=== PATIENT | female | born 1945 | race Caucasian/White ===

== ENCOUNTER 2018-02-09 16:46 | Inpatient (IN) | payer MEDICARE, BC ==
[2018-02-09] MEDS ORDERED: LORAZEPAM 1 MG TAB PO (18:30)
[2018-02-09] MEDS: DEXTROSE 5%-0.9% NACL 1,000 ML IV (20:00)
[2018-02-09] MEDS ORDERED: VANCOMYCIN IV PER PHARMACY XX (20:00)
[2018-02-09] MEDS: clonAZEPAM 0.5 MG TAB NGT (21:00)
[2018-02-09] MEDS ORDERED: LEVALBUTEROL (NEB) 0.63 MG/3 ML AMP HHN (21:00)
[2018-02-09] MEDS ORDERED: IPRATROPIUM (NEB) 0.5 MG/2.5 ML AMP HHN (21:00)
[2018-02-09] MEDS: QUETIAPINE 100 MG TAB NGT (21:00)
[2018-02-09] MEDS: MUPIROCIN 2% 15 GM CR TOP (21:33)
[2018-02-09] MEDS: MEROPENEM 500MG/50 ML (PMX) 50 ML IVPB (21:38)
[2018-02-09] MEDS: VANCOMYCIN 500MG/NS (PMX) 100 ML IVPB (22:26)
[2018-02-09] MEDS: GENTAMICIN 280 MG in SOD CHLORIDE 0.9% 100 ML IVPB (22:27)
[2018-02-10] MEDS: ERYTHROMYCIN ETHYL SUCC (80 MG/ML PO SYG) NGT ×5 (00:10→23:49)
[2018-02-10] MEDS: METOCLOPRAMIDE 10 MG INJ IV ×5 (00:10→23:49)
[2018-02-10] MEDS: DILTIAZEM 30 MG TAB NGT ×5 (00:10→23:48)
[2018-02-10] MEDS: IPRATROPIUM (HFA) 12.9 GM INHALER INH ×6 (01:27→21:48)
[2018-02-10] MEDS: LEVALBUTEROL (HFA) 15 GM INHALER INH ×6 (01:27→21:48)
[2018-02-10 05:37] LABS: WHITE BLOOD COUNT 3.9 10^3/ul (4.8-10.8)
[2018-02-10 05:37] LABS: ABNORMAL IP MESSAGE 1; HEMATOCRIT 27.6 % (37.0-47.0); HEMOGLOBIN 8.7 g/dl (12.0-16.0); MEAN CORPUSCULAR HEMOGLOBIN 28.5 pg (29.0-33.0); MEAN CORPUSCULAR HGB CONC 31.5 g/dl (32.0-37.0); MEAN CORPUSCULAR VOLUME 90.5 fl (82.0-101.0); MEAN PLATELET VOLUME 11.3 fl (7.4-10.4); PLATELET COUNT 107 10^3/UL (140-415); RED BLOOD COUNT 3.05 10^6/ul (4.20-5.40); RED CELL DISTRIBUTION WIDTH 14.7 % (11.5-14.5)
[2018-02-10 05:40] LABS: ADD MAN DIFF? YES; POSITIVE DIFF @See below
[2018-02-10] MEDS: LEVOTHYROXINE 112 MCG TAB NGT (06:00)
[2018-02-10] MEDS: LANSOPRAZOLE 30 MG CAP NGT (06:00)
[2018-02-10 06:02] LABS: INR 1.19; PROTIME 15.3 Sec (11.9-14.9); PT RATIO 1.2
[2018-02-10 06:11] LABS: ALANINE AMINOTRANSFERASE 110 IU/L (13-69); ALBUMIN 1.8 g/dl (3.3-4.9); ALBUMIN/GLOBULIN RATIO 0.75; ALKALINE PHOSPHATASE 88 IU/L (42-121); ANION GAP 7 (8-16); ASPARTATE AMINO TRANSFERASE 40 IU/L (15-46); BLOOD UREA NITROGEN 13 mg/dl (7-20); CARBON DIOXIDE 30 mmol/L (21-31); CHLORIDE 112 mmol/L (97-110); CREATININE 0.38 mg/dl (0.44-1.00); GLUCOSE 90 mg/dl (70-220); MAGNESIUM 2.1 mg/dl (1.7-2.5); POTASSIUM 3.5 mmol/L (3.5-5.1); SODIUM 145 mmol/L (135-144); TOTAL PROTEIN 4.2 g/dl (6.1-8.1)
[2018-02-10 06:14] LABS: GENTAMICIN,RANDOM 7.4 ug/ml
[2018-02-10] MEDS: MEROPENEM 500MG/50 ML (PMX) 50 ML IVPB ×3 (06:36→21:14)
[2018-02-10 06:42] LABS: AADO2 Arterial 228.8 mmHg (7.0-24.0); Allen Test ACCEPTAB; Arterial Base Excess 3.4 mmol/L (-3.0-3); Arterial COHb 0.7 % (0.0-3.0); Arterial MetHb 0.3 % (0.0-1.5); Arterial Total Hemglobin 8.9 g/dl (12.0-18.0); Arterial pCO2 36.9 mmhg (35-45); MODE VENT - AC; Site Left Radial
[2018-02-10] MEDS ORDERED: LEVOTHYROXINE 125 MCG TAB NGT (07:05)
[2018-02-10 07:07] LABS: FREE T4 (FREE THYROXINE) 0.65 ng/dl (0.78-2.44)
[2018-02-10] MEDS: POLYETHYLENE GLYCOL 17 GM PACKET GTB (08:52)
[2018-02-10] MEDS: QUETIAPINE 100 MG TAB NGT ×2 (08:52→21:14)
[2018-02-10] MEDS: clonAZEPAM 0.5 MG TAB NGT ×2 (08:52→21:14)
[2018-02-10] MEDS: ENOXAPARIN 40 MG/0.4 ML SYG SC (08:55)
[2018-02-10] MEDS: MUPIROCIN 2% 15 GM CR TOP ×2 (09:00→21:15)
[2018-02-10] MEDS ORDERED: PANTOPRAZOLE (EC) 40 MG TAB PO (09:00)
[2018-02-10] MEDS ORDERED: predniSONE 20 MG TAB NGT (09:00)
[2018-02-10] MEDS: LIOTHYRONINE 5 MCG TAB NGT (09:30)
[2018-02-10 10:12] LABS: ANISOCYTOSIS 1+ (0-0); BAND NEUTROPHILS #M 1.2 10^3/ul (0.0-0.6); BAND NEUTROPHILS % (M) 33 % (0-4); LYMPHOCYTES #M 0.1 10^3/ul (0.8-2.9); LYMPHOCYTES % (M) 5 % (15-51); MONOCYTES % (M) 1 % (0-11); PLATELET ESTIMATE DECREASED; POIKILOCYTOSIS 1+ (0-0); POLYCHROMASIA 3+ (0-0); REACTIVE LYMPHOCYTES% (M) 1 % (0-0); SEG NEUT #M 2.4 10^3/ul (1.6-7.5); SEGMENTED NEUTROPHILS (M) % 60 % (39-77); SMUDGE%M 8 % (0-0)
[2018-02-10] MEDS ORDERED: GENTAMICIN IV PER PHARMACY XX (10:30)
[2018-02-10 10:46] LABS: IRON 30 ug/dl (35-150)
[2018-02-10 10:57] LABS: % IRON SATURATION 18 % SAT (22-52); TOTAL IRON BINDING CAPACITY 167 ug/dl (241-421)
[2018-02-10] MEDS: LORAZEPAM 0.5 MG TAB PO (14:29)
[2018-02-10] MEDS: predniSONE 5 MG TAB NGT (14:34)
[2018-02-10] MEDS: LEVOTHYROXINE 100 MCG VIAL IV (14:35)
[2018-02-10] MEDS: MULTIVITAMINS IVPB (14:36)
[2018-02-10] MEDS: POTASSIUM CHLORIDE IVPB (14:36)
[2018-02-10] MEDS: DEXTROSE IVPB (14:36)
[2018-02-10] MEDS: HYDROCODONE/APAP (5/325) TAB NGT (14:47)
[2018-02-10] MEDS: VANCOMYCIN 500MG/NS (PMX) 100 ML IVPB (14:57)
[2018-02-10] MEDS: traMADol 50 MG TAB NGT (18:55)
[2018-02-10] MEDS: D5W + KCL 20 MEQ 1,000 ML IV (21:18)
[2018-02-11] MEDS: IPRATROPIUM (HFA) 12.9 GM INHALER INH ×6 (01:53→21:52)
[2018-02-11] MEDS: LEVALBUTEROL (HFA) 15 GM INHALER INH ×6 (01:53→21:52)
[2018-02-11] MEDS: VANCOMYCIN 500MG/NS (PMX) 100 ML IVPB ×2 (03:17→15:28)
[2018-02-11] MEDS: D5W + KCL 20 MEQ 1,000 ML IV (04:35)
[2018-02-11 05:53] LABS: ABNORMAL IP MESSAGE 1; HEMATOCRIT 23.5 % (37.0-47.0); HEMOGLOBIN 7.4 g/dl (12.0-16.0); MEAN CORPUSCULAR HEMOGLOBIN 28.6 pg (29.0-33.0); MEAN CORPUSCULAR HGB CONC 31.5 g/dl (32.0-37.0); MEAN CORPUSCULAR VOLUME 90.7 fl (82.0-101.0); MEAN PLATELET VOLUME 11.7 fl (7.4-10.4); PLATELET COUNT 86 10^3/UL (140-415); RED BLOOD COUNT 2.59 10^6/ul (4.20-5.40); RED CELL DISTRIBUTION WIDTH 14.7 % (11.5-14.5)
[2018-02-11 05:53] LABS: WHITE BLOOD COUNT 4.2 10^3/ul (4.8-10.8)
[2018-02-11 05:59] LABS: ADD MAN DIFF? YES; POSITIVE DIFF @See below
[2018-02-11] MEDS: ERYTHROMYCIN ETHYL SUCC (80 MG/ML PO SYG) NGT ×3 (06:27→17:37)
[2018-02-11] MEDS: LEVOTHYROXINE 100 MCG VIAL IV (06:27)
[2018-02-11] MEDS: METOCLOPRAMIDE 10 MG INJ IV ×3 (06:27→17:37)
[2018-02-11] MEDS: LANSOPRAZOLE 30 MG CAP NGT (06:27)
[2018-02-11] MEDS: DILTIAZEM 30 MG TAB NGT ×3 (06:28→17:38)
[2018-02-11] MEDS: MEROPENEM 500MG/50 ML (PMX) 50 ML IVPB ×2 (06:30→13:17)
[2018-02-11 06:34] LABS: ALANINE AMINOTRANSFERASE 84 IU/L (13-69); ALBUMIN 1.6 g/dl (3.3-4.9); ALBUMIN/GLOBULIN RATIO 0.69; ALKALINE PHOSPHATASE 92 IU/L (42-121); ANION GAP 5 (8-16); ASPARTATE AMINO TRANSFERASE 37 IU/L (15-46); BILIRUBIN,INDIRECT 0.1 mg/dl (0-1.1); BILIRUBIN,TOTAL 0.1 mg/dl (0.2-1.3); BLOOD UREA NITROGEN 12 mg/dl (7-20); CALCIUM 6.8 mg/dl (8.4-10.2); CARBON DIOXIDE 30 mmol/L (21-31); CHLORIDE 109 mmol/L (97-110); CREATININE 0.41 mg/dl (0.44-1.00); GLUCOSE 82 mg/dl (70-220); PHOSPHORUS 2.1 mg/dl (2.5-4.9); POTASSIUM 3.4 mmol/L (3.5-5.1); SODIUM 141 mmol/L (135-144); TOTAL PROTEIN 3.9 g/dl (6.1-8.1)
[2018-02-11 07:12] LABS: BAND NEUTROPHILS #M 0.5 10^3/ul (0.0-0.6); BAND NEUTROPHILS % (M) 13 % (0-4); GIANT THROMBO% (M) 2 % (0-0); LYMPHOCYTES #M 1.3 10^3/ul (0.8-2.9); LYMPHOCYTES % (M) 31 % (15-51); METAMYELOCYTES %M 1 % (0-0); MONOCYTE #M 0.1 10^3/ul (0.3-0.9); MONOCYTES % (M) 4 % (0-11); PLATELET ESTIMATE DECREASED; REACTIVE LYMPHOCYTES% (M) 2 % (0-0); SEG NEUT #M 2.1 10^3/ul (1.6-7.5); SEGMENTED NEUTROPHILS (M) % 49 % (39-77); SMUDGE%M 14 % (0-0)
[2018-02-11 07:33] LABS: RETICULOCYTE COUNT # 0.018 X10^6 (0.020-0.110); RETICULOCYTE COUNT % 0.7 % (0.5-1.5)
[2018-02-11 07:33] LABS: RETICULOCYTE RBC 2.66
[2018-02-11] MEDS ORDERED: KCL IV (08:17)
[2018-02-11] MEDS ORDERED: POTASSIUM PHOSPHATE IV (08:17)
[2018-02-11] MEDS ORDERED: D5W IV (08:17)
[2018-02-11] MEDS ORDERED: POTASSIUM CHLORIDE 100 ML IVPB (08:26)
[2018-02-11] MEDS ORDERED: D5W-0.45 NACL + KCL 20 MEQ 1,000 ML IV (08:30)
[2018-02-11 08:42] LABS: FOLATE 15.8 ng/ml (2.8-20.0)
[2018-02-11] MEDS: QUETIAPINE 100 MG TAB NGT ×2 (08:46→20:33)
[2018-02-11] MEDS: MUPIROCIN 2% 15 GM CR TOP ×2 (08:46→20:33)
[2018-02-11] MEDS: predniSONE 5 MG TAB NGT (08:46)
[2018-02-11] MEDS: LIOTHYRONINE 5 MCG TAB NGT (08:46)
[2018-02-11] MEDS: clonAZEPAM 0.5 MG TAB NGT ×2 (08:46→20:33)
[2018-02-11] MEDS: POTASSIUM CHLORIDE 100 ML IVPB (08:47)
[2018-02-11] MEDS: ENOXAPARIN 40 MG/0.4 ML SYG SC (08:51)
[2018-02-11] MEDS: POLYETHYLENE GLYCOL 17 GM PACKET GTB (08:57)
[2018-02-11] MEDS: MULTIVITAMINS IVPB (09:00)
[2018-02-11] MEDS: DEXTROSE IVPB (09:00)
[2018-02-11] MEDS: POTASSIUM CHLORIDE IVPB (09:00)
[2018-02-11] MEDS: POTASSIUM PHOSPHATE IV (10:40)
[2018-02-11] MEDS: GENTAMICIN 280 MG in SOD CHLORIDE 0.9% 100 ML IVPB (10:40)
[2018-02-11] MEDS: [UNRECOGNIZED DRUG - OTHER] IV (10:40)
[2018-02-11] MEDS: POTASSIUM CHLORIDE IV (10:40)
[2018-02-11] MEDS: FUROSEMIDE 20 MG INJ IV (11:46)
[2018-02-11] MEDS: MULTIVITAMINS THERAPEUTIC TAB PO (15:28)
[2018-02-11] MEDS: HYDROCODONE/APAP (5/325) TAB NGT (15:34)
[2018-02-11] MEDS: SOD FERRIC GLUC COMPLX 125 MG in SOD CHLORIDE 0.9% 100 ML IVPB (17:37)
[2018-02-11] MEDS: metroNIDAZOLE 500 MG/NS (PMX) 100 ML IVPB (21:25)
[2018-02-12] MEDS: METOCLOPRAMIDE 10 MG INJ IV ×5 (00:19→23:56)
[2018-02-12] MEDS: ERYTHROMYCIN ETHYL SUCC (80 MG/ML PO SYG) NGT ×5 (00:19→23:56)
[2018-02-12] MEDS: DILTIAZEM 30 MG TAB NGT ×5 (00:20→23:52)
[2018-02-12] MEDS: [UNRECOGNIZED DRUG - OTHER] IV (00:23)
[2018-02-12] MEDS: POTASSIUM CHLORIDE IV (00:23)
[2018-02-12] MEDS: POTASSIUM PHOSPHATE IV (00:23)
[2018-02-12] MEDS: IPRATROPIUM (HFA) 12.9 GM INHALER INH ×6 (01:39→21:37)
[2018-02-12] MEDS: LEVALBUTEROL (HFA) 15 GM INHALER INH ×6 (01:39→21:37)
[2018-02-12] MEDS: VANCOMYCIN 500MG/NS (PMX) 100 ML IVPB ×2 (03:42→16:16)
[2018-02-12 05:36] LABS: ABNORMAL IP MESSAGE 1; ALANINE AMINOTRANSFERASE 88 IU/L (13-69); ALBUMIN 1.7 g/dl (3.3-4.9); ALKALINE PHOSPHATASE 88 IU/L (42-121); ANION GAP 7 (8-16); ASPARTATE AMINO TRANSFERASE 31 IU/L (15-46); BILIRUBIN,INDIRECT 0.2 mg/dl (0-1.1); BILIRUBIN,TOTAL 0.2 mg/dl (0.2-1.3); BLOOD UREA NITROGEN 12 mg/dl (7-20); CALCIUM 6.8 mg/dl (8.4-10.2); CARBON DIOXIDE 30 mmol/L (21-31); CHLORIDE 107 mmol/L (97-110); CREATININE 0.44 mg/dl (0.44-1.00); GLUCOSE 92 mg/dl (70-220); HEMATOCRIT 25.5 % (37.0-47.0); HEMOGLOBIN 7.9 g/dl (12.0-16.0); MAGNESIUM 1.8 mg/dl (1.7-2.5); MEAN CORPUSCULAR VOLUME 90.4 fl (82.0-101.0); MEAN PLATELET VOLUME 11.2 fl (7.4-10.4); PHOSPHORUS 2.9 mg/dl (2.5-4.9); PLATELET COUNT 89 10^3/UL (140-415); POTASSIUM 3.4 mmol/L (3.5-5.1); RED BLOOD COUNT 2.82 10^6/ul (4.20-5.40); RED CELL DISTRIBUTION WIDTH 14.5 % (11.5-14.5); SODIUM 141 mmol/L (135-144); TOTAL PROTEIN 4.1 g/dl (6.1-8.1)
[2018-02-12 05:36] LABS: WHITE BLOOD COUNT 4.8 10^3/ul (4.8-10.8)
[2018-02-12 05:41] LABS: POSITIVE DIFF @See below
[2018-02-12 05:42] LABS: ADD MAN DIFF? YES
[2018-02-12] MEDS: LANSOPRAZOLE 30 MG CAP NGT (05:56)
[2018-02-12] MEDS: HYDROCODONE/APAP (5/325) TAB NGT (05:57)
[2018-02-12] MEDS: metroNIDAZOLE 500 MG/NS (PMX) 100 ML IVPB ×3 (05:57→22:09)
[2018-02-12] MEDS: LEVOTHYROXINE 100 MCG VIAL IV (05:57)
[2018-02-12] MEDS: MAGNESIUM SULFATE 2 GM/50 ML 50 ML IVPB (08:17)
[2018-02-12 08:59] LABS: ANISOCYTOSIS 1+ (0-0); BAND NEUTROPHILS #M 1.1 10^3/ul (0.0-0.6); BAND NEUTROPHILS % (M) 23 % (0-4); GIANT THROMBO% (M) 2 % (0-0); LYMPHOCYTES #M 0.9 10^3/ul (0.8-2.9); LYMPHOCYTES % (M) 19 % (15-51); MONOCYTES % (M) 1 % (0-11); PLATELET ESTIMATE DECREASED; SEG NEUT #M 2.8 10^3/ul (1.6-7.5); SEGMENTED NEUTROPHILS (M) % 57 % (39-77); SMUDGE%M 1 % (0-0)
[2018-02-12] MEDS: QUETIAPINE 100 MG TAB NGT ×3 (09:00→22:11)
[2018-02-12] MEDS: MULTIVITAMINS IVPB (09:07)
[2018-02-12] MEDS: DEXTROSE IVPB (09:07)
[2018-02-12] MEDS: POTASSIUM CHLORIDE IVPB (09:07)
[2018-02-12] MEDS: LIOTHYRONINE 5 MCG TAB NGT (09:08)
[2018-02-12] MEDS: POTASSIUM CHLORIDE 100 ML IVPB ×2 (09:08→10:51)
[2018-02-12] MEDS: traMADol 50 MG TAB NGT ×2 (09:08→15:18)
[2018-02-12] MEDS: POLYETHYLENE GLYCOL 17 GM PACKET GTB (09:08)
[2018-02-12] MEDS: MUPIROCIN 2% 15 GM CR TOP ×2 (09:09→21:03)
[2018-02-12] MEDS: clonAZEPAM 0.5 MG TAB NGT ×2 (09:09→21:03)
[2018-02-12] MEDS: predniSONE 5 MG TAB NGT (09:09)
[2018-02-12] MEDS: ENOXAPARIN 40 MG/0.4 ML SYG SC (09:24)
[2018-02-12] MEDS: D5W-0.45 NACL + KCL 30 MEQ 1,000 ML IV ×2 (13:10→22:49)
[2018-02-12 13:36] LABS: OCCULT BLOOD STOOL NEGATIVE (NEGATIVE)
[2018-02-12] MEDS: ACETAMINOPHEN 650MG/20.3ML CUP NGT (15:17)
[2018-02-12] MEDS: LORAZEPAM 0.5 MG TAB PO (15:20)
[2018-02-12] MEDS: SOD FERRIC GLUC COMPLX 125 MG in SOD CHLORIDE 0.9% 100 ML IVPB (16:16)
[2018-02-12] MEDS: GENTAMICIN 280 MG in SOD CHLORIDE 0.9% 100 ML IVPB (22:00)
[2018-02-12 22:03] LABS: GENTAMICIN,TROUGH 2.3 ug/ml (1.0-2.0)
[2018-02-13] MEDS: IPRATROPIUM (HFA) 12.9 GM INHALER INH ×5 (01:14→21:19)
[2018-02-13] MEDS: LEVALBUTEROL (HFA) 15 GM INHALER INH ×5 (01:14→21:19)
[2018-02-13] MEDS: VANCOMYCIN 500MG/NS (PMX) 100 ML IVPB ×2 (02:33→15:14)
[2018-02-13] MEDS: LORAZEPAM 0.5 MG TAB PO ×2 (04:21→16:21)
[2018-02-13] MEDS: metroNIDAZOLE 500 MG/NS (PMX) 100 ML IVPB ×3 (05:13→22:07)
[2018-02-13] MEDS: METOCLOPRAMIDE 10 MG INJ IV (05:13)
[2018-02-13] MEDS: LEVOTHYROXINE 100 MCG VIAL IV (05:13)
[2018-02-13] MEDS: DILTIAZEM 30 MG TAB NGT (05:14)
[2018-02-13] MEDS: LANSOPRAZOLE 30 MG CAP NGT (05:14)
[2018-02-13] MEDS: traMADol 50 MG TAB NGT ×2 (05:14→13:11)
[2018-02-13] MEDS: ERYTHROMYCIN ETHYL SUCC (80 MG/ML PO SYG) NGT ×3 (05:17→17:36)
[2018-02-13 06:25] LABS: WHITE BLOOD COUNT 6.1 10^3/ul (4.8-10.8)
[2018-02-13 06:25] LABS: ABNORMAL IP MESSAGE 1; HEMATOCRIT 28.3 % (37.0-47.0); HEMOGLOBIN 8.9 g/dl (12.0-16.0); MEAN CORPUSCULAR HEMOGLOBIN 28.4 pg (29.0-33.0); MEAN CORPUSCULAR HGB CONC 31.4 g/dl (32.0-37.0); MEAN CORPUSCULAR VOLUME 90.4 fl (82.0-101.0); MEAN PLATELET VOLUME 11.6 fl (7.4-10.4); PLATELET COUNT 93 10^3/UL (140-415); RED BLOOD COUNT 3.13 10^6/ul (4.20-5.40); RED CELL DISTRIBUTION WIDTH 14.6 % (11.5-14.5)
[2018-02-13 06:27] LABS: ADD MAN DIFF? YES; POSITIVE DIFF @See below
[2018-02-13 06:48] LABS: ALANINE AMINOTRANSFERASE 78 IU/L (13-69); ALBUMIN/GLOBULIN RATIO 0.71; ALKALINE PHOSPHATASE 124 IU/L (42-121); ANION GAP 10 (8-16); ASPARTATE AMINO TRANSFERASE 26 IU/L (15-46); BILIRUBIN,INDIRECT 0.2 mg/dl (0-1.1); BILIRUBIN,TOTAL 0.2 mg/dl (0.2-1.3); BLOOD UREA NITROGEN 11 mg/dl (7-20); CALCIUM 6.7 mg/dl (8.4-10.2); CARBON DIOXIDE 27 mmol/L (21-31); CHLORIDE 104 mmol/L (97-110); CREATININE 0.48 mg/dl (0.44-1.00); GLUCOSE 240 mg/dl (70-220); PHOSPHORUS 3.2 mg/dl (2.5-4.9); POTASSIUM 5.3 mmol/L (3.5-5.1); SODIUM 136 mmol/L (135-144); TOTAL PROTEIN 4.8 g/dl (6.1-8.1)
[2018-02-13 07:38] LABS: ANISOCYTOSIS 1+ (0-0); BAND NEUTROPHILS #M 1.1 10^3/ul (0.0-0.6); BAND NEUTROPHILS % (M) 19 % (0-4); LYMPHOCYTES #M 0.4 10^3/ul (0.8-2.9); LYMPHOCYTES % (M) 7 % (15-51); MICROCYTOSIS 1+ (0-0); MONOCYTE #M 0.1 10^3/ul (0.3-0.9); MONOCYTES % (M) 3 % (0-11); PLATELET ESTIMATE DECREASED; PROMYELOCYTES % (M) 1 % (0-0); SEG NEUT #M 4.3 10^3/ul (1.6-7.5); SEGMENTED NEUTROPHILS (M) % 70 % (39-77); SMUDGE%M 2 % (0-0)
[2018-02-13] MEDS ORDERED: TPN 1,000 ML IV ×2 (08:39→11:23)
[2018-02-13] MEDS ORDERED: FAT EMULSION 20% 250 ML IV (09:00)
[2018-02-13] MEDS: ALBUMIN HUMAN 25% 100 ML IV ×2 (09:27→16:22)
[2018-02-13] MEDS: DOCUSATE SODIUM 10 MG/ML (10ML CUP) NGT (09:30)
[2018-02-13] MEDS: LIOTHYRONINE 5 MCG TAB NGT (09:30)
[2018-02-13] MEDS: ACETAMINOPHEN 650MG/20.3ML CUP NGT (09:30)
[2018-02-13] MEDS: MUPIROCIN 2% 15 GM CR TOP ×2 (09:31→20:34)
[2018-02-13] MEDS: QUETIAPINE 100 MG TAB NGT ×2 (09:31→20:34)
[2018-02-13] MEDS: predniSONE 5 MG TAB NGT (09:31)
[2018-02-13] MEDS: clonAZEPAM 0.5 MG TAB NGT ×2 (09:31→20:34)
[2018-02-13] MEDS: SOD CHLORIDE 0.9% 1,000 ML IV (09:33)
[2018-02-13] MEDS: ACCU-CHEK XX ×4 (09:34→20:39)
[2018-02-13] MEDS: ENOXAPARIN 40 MG/0.4 ML SYG SC (09:45)
[2018-02-13] MEDS: FUROSEMIDE 20 MG INJ IV ×2 (10:47→17:09)
[2018-02-13] MEDS: GENTAMICIN 280 MG in SOD CHLORIDE 0.9% 100 ML IVPB (11:04)
[2018-02-13 11:13] LABS: ALANINE AMINOTRANSFERASE 66 IU/L (13-69); ALBUMIN 2.3 g/dl (3.3-4.9); ALBUMIN/GLOBULIN RATIO 0.92; ALKALINE PHOSPHATASE 95 IU/L (42-121); ANION GAP 12 (8-16); ASPARTATE AMINO TRANSFERASE 21 IU/L (15-46); BILIRUBIN,INDIRECT 0.3 mg/dl (0-1.1); BILIRUBIN,TOTAL 0.3 mg/dl (0.2-1.3); BLOOD UREA NITROGEN 12 mg/dl (7-20); CALCIUM 6.8 mg/dl (8.4-10.2); CARBON DIOXIDE 25 mmol/L (21-31); CHLORIDE 103 mmol/L (97-110); CREATININE 0.45 mg/dl (0.44-1.00); GLUCOSE 138 mg/dl (70-220); PHOSPHORUS 3.3 mg/dl (2.5-4.9); POTASSIUM 4.2 mmol/L (3.5-5.1); SODIUM 136 mmol/L (135-144); TOTAL PROTEIN 4.8 g/dl (6.1-8.1); TRIGLYCERIDES 64 mg/dl (0-149)
[2018-02-13 11:20] LABS: PREALBUMIN 5.4 mg/dl (17.6-36.0)
[2018-02-13] MEDS: LIDOCAINE 1% (MPF) 5 ML VIAL SC (12:20)
[2018-02-13] MEDS ORDERED: GLUCOSE GEL 15 GRAM TUBE BUCCAL (12:30)
[2018-02-13] MEDS ORDERED: GLUCAGON 1 MG INJ IM (12:30)
[2018-02-13] MEDS ORDERED: DEXTROSE 50% 50 ML SYRINGE IV ×2 (12:30)
[2018-02-13] MEDS ORDERED: GLUCOSE GEL 15 GRAM TUBE PO ×2 (12:30)
[2018-02-13] MEDS: Discontinue current oral sulfonylureas (glyburide, glipizide, and/or glimepiride) prior to XX (12:31)
[2018-02-13] MEDS: HYPOGLYCEMIA PROTOCOL when Glucose is <70 mg/dL or symptomatic <90 mg/dL. XX (12:31)
[2018-02-13] MEDS: INSULIN ASPART [NOVOLOG] 3 ML PEN SC ×3 (13:00→20:38)
[2018-02-13] MEDS ORDERED: FUROSEMIDE 20 MG INJ IV ×2 (14:00→17:00)
[2018-02-13] MEDS: MUPIROCIN 2% 22 GM OINT TOP ×2 (14:00→22:08)
[2018-02-13] MEDS: SOD FERRIC GLUC COMPLX 125 MG in SOD CHLORIDE 0.9% 100 ML IVPB (16:21)
[2018-02-13] MEDS: TPN 1,000 ML IV (20:35)
[2018-02-13] MEDS: FAT EMULSION 20% 250 ML IV (22:07)
[2018-02-14] MEDS: ERYTHROMYCIN ETHYL SUCC (80 MG/ML PO SYG) NGT ×4 (00:09→18:42)
[2018-02-14] MEDS: LORAZEPAM 0.5 MG TAB PO ×2 (00:09→20:43)
[2018-02-14] MEDS: ALBUMIN HUMAN 25% 100 ML IV ×2 (00:10→19:32)
[2018-02-14] MEDS: INSULIN ASPART [NOVOLOG] 3 ML PEN SC ×6 (01:00→21:00)
[2018-02-14] MEDS: FUROSEMIDE 20 MG INJ IV ×2 (01:17→21:17)
[2018-02-14] MEDS: HYDROCODONE/APAP (5/325) TAB NGT ×2 (01:19→20:43)
[2018-02-14] MEDS: ACCU-CHEK XX ×6 (01:24→21:16)
[2018-02-14] MEDS: LEVALBUTEROL (HFA) 15 GM INHALER INH ×6 (01:29→21:46)
[2018-02-14] MEDS: IPRATROPIUM (HFA) 12.9 GM INHALER INH ×6 (01:29→21:46)
[2018-02-14] MEDS: VANCOMYCIN 500MG/NS (PMX) 100 ML IVPB ×2 (03:40→19:33)
[2018-02-14 05:28] LABS: ABNORMAL IP MESSAGE 1; HEMATOCRIT 20.7 % (37.0-47.0); MEAN CORPUSCULAR HEMOGLOBIN 28.6 pg (29.0-33.0); MEAN CORPUSCULAR HGB CONC 31.9 g/dl (32.0-37.0); MEAN CORPUSCULAR VOLUME 89.6 fl (82.0-101.0); MEAN PLATELET VOLUME 11.5 fl (7.4-10.4); PLATELET COUNT 68 10^3/UL (140-415); RED BLOOD COUNT 2.31 10^6/ul (4.20-5.40); RED CELL DISTRIBUTION WIDTH 14.7 % (11.5-14.5)
[2018-02-14 05:28] LABS: WHITE BLOOD COUNT 4.5 10^3/ul (4.8-10.8)
[2018-02-14 05:31] LABS: POSITIVE DIFF @See below
[2018-02-14 05:44] LABS: HEMOGLOBIN 6.6 g/dl (12.0-16.0)
[2018-02-14 05:45] LABS: ADD MAN DIFF? YES
[2018-02-14 05:50] LABS: ALANINE AMINOTRANSFERASE 50 IU/L (13-69); ALBUMIN 2.3 g/dl (3.3-4.9); ALBUMIN/GLOBULIN RATIO 1.04; ALKALINE PHOSPHATASE 72 IU/L (42-121); ANION GAP 11 (8-16); ASPARTATE AMINO TRANSFERASE 16 IU/L (15-46); BILIRUBIN,INDIRECT 0.3 mg/dl (0-1.1); BILIRUBIN,TOTAL 0.3 mg/dl (0.2-1.3); BLOOD UREA NITROGEN 11 mg/dl (7-20); CALCIUM 7.1 mg/dl (8.4-10.2); CARBON DIOXIDE 30 mmol/L (21-31); CHLORIDE 100 mmol/L (97-110); CREATININE 0.52 mg/dl (0.44-1.00); GLUCOSE 127 mg/dl (70-220); SODIUM 138 mmol/L (135-144); TOTAL PROTEIN 4.5 g/dl (6.1-8.1)
[2018-02-14 06:00] LABS: POTASSIUM 2.8 mmol/L (3.5-5.1)
[2018-02-14] MEDS: LANSOPRAZOLE 30 MG CAP NGT (06:23)
[2018-02-14] MEDS: metroNIDAZOLE 500 MG/NS (PMX) 100 ML IVPB ×3 (06:23→21:58)
[2018-02-14] MEDS: LEVOTHYROXINE 100 MCG VIAL IV (06:23)
[2018-02-14] MEDS ORDERED: POTASSIUM CHLORIDE 0 ML IVPB (06:58)
[2018-02-14] MEDS: POTASSIUM CHLORIDE 50 ML IVPB ×4 (07:02→09:55)
[2018-02-14 08:11] LABS: ABNORMAL IP MESSAGE 1; HEMATOCRIT 24.5 % (37.0-47.0); HEMOGLOBIN 7.9 g/dl (12.0-16.0); MEAN CORPUSCULAR HEMOGLOBIN 29.7 pg (29.0-33.0); MEAN CORPUSCULAR HGB CONC 32.2 g/dl (32.0-37.0); MEAN CORPUSCULAR VOLUME 92.1 fl (82.0-101.0); PLATELET COUNT 69 10^3/UL (140-415); RED BLOOD COUNT 2.66 10^6/ul (4.20-5.40); RED CELL DISTRIBUTION WIDTH 14.8 % (11.5-14.5)
[2018-02-14 08:14] LABS: ADD MAN DIFF? YES; POSITIVE DIFF @See below
[2018-02-14 08:29] LABS: MAGNESIUM 1.7 mg/dl (1.7-2.5)
[2018-02-14 08:34] LABS: AADO2 Arterial 519.2 mmHg (7.0-24.0); Allen Test ACCEPTAB; Arterial Base Excess 1.5 mmol/L (-3.0-3); Arterial Blood Gas Oxygen Sat 98.1 mmHG (95.0-100.0); Arterial COHb 0.9 % (0.0-3.0); Arterial Fraction of Oxyhgb 96.9 % (93.0-99.0); Arterial HCO3 29.1 mmol/L (22.0-26.0); Arterial MetHb 0.3 % (0.0-1.5); Arterial Total Hemglobin 8.3 g/dl (12.0-18.0); Arterial pCO2 64.9 mmhg (35-45); MODE VENT - AC; Site Right Radial
[2018-02-14] MEDS: ENOXAPARIN 40 MG/0.4 ML SYG SC (08:42)
[2018-02-14] MEDS: QUETIAPINE 100 MG TAB NGT ×2 (08:57→21:17)
[2018-02-14] MEDS: clonAZEPAM 0.5 MG TAB NGT ×2 (08:57→21:17)
[2018-02-14] MEDS: LIOTHYRONINE 5 MCG TAB NGT (08:57)
[2018-02-14] MEDS: predniSONE 5 MG TAB NGT (08:57)
[2018-02-14] MEDS: MUPIROCIN 2% 22 GM OINT TOP ×2 (08:58→22:59)
[2018-02-14] MEDS: MUPIROCIN 2% 15 GM CR TOP (09:06)
[2018-02-14 09:44] LABS: ANISOCYTOSIS 2+ (0-0); BAND NEUTROPHILS #M 1.8 10^3/ul (0.0-0.6); BAND NEUTROPHILS % (M) 42 % (0-4); EOSINOPHILS % (M) 1 % (0-7); HYPOCHROMASIA 2+ (0-0); LYMPHOCYTES #M 0.2 10^3/ul (0.8-2.9); LYMPHOCYTES % (M) 5 % (15-51); METAMYELOCYTES %M 1 % (0-0); MICROCYTOSIS 2+ (0-0); MONOCYTES % (M) 1 % (0-11); MYELOCYTES % (M) 1 % (0-0); PLATELET ESTIMATE SIG DECREASED; POIKILOCYTOSIS 1+ (0-0); POLYCHROMASIA 3+ (0-0); SEG NEUT #M 2.3 10^3/ul (1.6-7.5); SEGMENTED NEUTROPHILS (M) % 49 % (39-77); SMUDGE%M 12 % (0-0)
[2018-02-14] MEDS: [UNRECOGNIZED DRUG - REMARK] IV (10:00)
[2018-02-14] MEDS ORDERED: LORAZEPAM 2 MG INJ (10:11)
[2018-02-14] MEDS: MIDAZOLAM (DRIP) 50 mg/50 mL 50 ML IV ×2 (10:19→20:51)
[2018-02-14] MEDS ORDERED: EPINEPHrine 0.1 MG/ML SYG (10:54)
[2018-02-14] MEDS ORDERED: NORepinephrine 8MG/250 ML (PMX 250 ML (11:00)
[2018-02-14] MEDS: SOD CHLORIDE 0.9% 1,000 ML IV ×2 (11:00→12:30)
[2018-02-14 11:20] LABS: ANISOCYTOSIS 1+ (0-0); BAND NEUTROPHILS #M 2.4 10^3/ul (0.0-0.6); BAND NEUTROPHILS % (M) 40 % (0-4); GIANT THROMBO% (M) 1 % (0-0); LYMPHOCYTES #M 0.2 10^3/ul (0.8-2.9); LYMPHOCYTES % (M) 4 % (15-51); MICROCYTOSIS 1+ (0-0); MONOCYTES % (M) 1 % (0-11); PLATELET ESTIMATE SIG DECREASED; POIKILOCYTOSIS 3+ (0-0); POLYCHROMASIA 3+ (0-0); REACTIVE LYMPHOCYTES #M 0.1 10^3/ul (0.0-0.0); REACTIVE LYMPHOCYTES% (M) 3 % (0-0); SEG NEUT #M 3.3 10^3/ul (1.6-7.5); SEGMENTED NEUTROPHILS (M) % 52 % (39-77); SMUDGE%M 33 % (0-0)
[2018-02-14] MEDS: LORAZEPAM 2 MG INJ IV (12:01)
[2018-02-14] MEDS: NORepinephrine 8MG/250 ML (PMX 250 ML IV ×2 (13:33→22:06)
[2018-02-14 14:00] LABS: AADO2 Arterial 433.5 mmHg (7.0-24.0); Allen Test ACCEPTAB; Arterial Base Excess 1.8 mmol/L (-3.0-3); Arterial Blood Gas Oxygen Sat 99.2 mmHG (95.0-100.0); Arterial COHb 0.8 % (0.0-3.0); Arterial Fraction of Oxyhgb 98.1 % (93.0-99.0); Arterial MetHb 0.3 % (0.0-1.5); Arterial Total Hemglobin 7.6 g/dl (12.0-18.0); Arterial pCO2 45.5 mmhg (35-45); MODE VENT - AC; Site Right Radial
[2018-02-14] MEDS: TPN 1,000 ML IV (15:00)
[2018-02-14 15:30] LABS: POTASSIUM 3.6 mmol/L (3.5-5.1)
[2018-02-14] MEDS: POTASSIUM CHLORIDE 100 ML IVPB (17:05)
[2018-02-14 20:07] LABS: AADO2 Arterial 301.1 mmHg (7.0-24.0); Allen Test ACCEPTAB; Arterial Base Excess 0.1 mmol/L (-3.0-3); Arterial Blood Gas Oxygen Sat 96.1 mmHG (95.0-100.0); Arterial COHb 1.4 % (0.0-3.0); Arterial Fraction of Oxyhgb 94.5 % (93.0-99.0); Arterial HCO3 24.6 mmol/L (22.0-26.0); Arterial MetHb 0.3 % (0.0-1.5); Arterial Total Hemglobin 7.7 g/dl (12.0-18.0); Arterial pCO2 39.5 mmhg (35-45); MODE VENT - AC; Site Right Radial
[2018-02-14 20:16] LABS: POTASSIUM 3.5 mmol/L (3.5-5.1)
[2018-02-14] MEDS: FAT EMULSION 20% 250 ML IV (22:59)
[2018-02-15] MEDS: ERYTHROMYCIN ETHYL SUCC (80 MG/ML PO SYG) NGT ×5 (00:17→22:50)
[2018-02-15] MEDS: INSULIN ASPART [NOVOLOG] 3 ML PEN SC ×6 (01:00→20:39)
[2018-02-15] MEDS: IPRATROPIUM (HFA) 12.9 GM INHALER INH ×6 (01:05→22:13)
[2018-02-15] MEDS: LEVALBUTEROL (HFA) 15 GM INHALER INH ×6 (01:05→22:14)
[2018-02-15] MEDS: ACCU-CHEK XX ×6 (01:24→20:27)
[2018-02-15] MEDS: MUPIROCIN 2% 15 GM CR TOP ×3 (01:25→20:27)
[2018-02-15] MEDS: HYDROCODONE/APAP (5/325) TAB NGT (03:04)
[2018-02-15] MEDS: VANCOMYCIN 500MG/NS (PMX) 100 ML IVPB ×2 (03:11→16:01)
[2018-02-15] MEDS: NORepinephrine 8MG/250 ML (PMX 250 ML IV (04:14)
[2018-02-15] MEDS: metroNIDAZOLE 500 MG/NS (PMX) 100 ML IVPB ×3 (05:31→22:50)
[2018-02-15] MEDS: LANSOPRAZOLE 30 MG CAP NGT (05:32)
[2018-02-15] MEDS: LEVOTHYROXINE 100 MCG VIAL IV (05:32)
[2018-02-15 05:58] LABS: HEMATOCRIT 19.9 % (37.0-47.0); MEAN CORPUSCULAR HEMOGLOBIN 28.8 pg (29.0-33.0); MEAN CORPUSCULAR VOLUME 90.9 fl (82.0-101.0); RED BLOOD COUNT 2.19 10^6/ul (4.20-5.40)
[2018-02-15 05:58] LABS: WHITE BLOOD COUNT 5.8 10^3/ul (4.8-10.8)
[2018-02-15 05:59] LABS: ABNORMAL IP MESSAGE 1; MEAN CORPUSCULAR HGB CONC 31.7 g/dl (32.0-37.0); MEAN PLATELET VOLUME 13.2 fl (7.4-10.4); NUCLEATED RED BLOOD CELLS% 0.3 /100WBC (0.0-0.0); PLATELET COUNT 41 10^3/UL (140-415); RED CELL DISTRIBUTION WIDTH 14.6 % (11.5-14.5)
[2018-02-15 06:12] LABS: POSITIVE DIFF @See below
[2018-02-15 06:13] LABS: ADD MAN DIFF? YES
[2018-02-15 06:14] LABS: ANION GAP 11 (8-16); BLOOD UREA NITROGEN 16 mg/dl (7-20); CALCIUM 6.7 mg/dl (8.4-10.2); CARBON DIOXIDE 27 mmol/L (21-31); CHLORIDE 103 mmol/L (97-110); CREATININE 0.68 mg/dl (0.44-1.00); GLUCOSE 115 mg/dl (70-220); HEMOGLOBIN 6.3 g/dl (12.0-16.0); MAGNESIUM 1.4 mg/dl (1.7-2.5); PHOSPHORUS 2.2 mg/dl (2.5-4.9); SODIUM 138 mmol/L (135-144)
[2018-02-15 06:19] LABS: POTASSIUM 2.9 mmol/L (3.5-5.1)
[2018-02-15 07:11] LABS: ALANINE AMINOTRANSFERASE 53 IU/L (13-69); ALBUMIN 1.8 g/dl (3.3-4.9); ALKALINE PHOSPHATASE 87 IU/L (42-121); ASPARTATE AMINO TRANSFERASE 19 IU/L (15-46); BILIRUBIN,INDIRECT 0.2 mg/dl (0-1.1); BILIRUBIN,TOTAL 0.2 mg/dl (0.2-1.3); TOTAL PROTEIN 3.5 g/dl (6.1-8.1)
[2018-02-15 07:27] LABS: ADD MAN DIFF? NO
[2018-02-15] MEDS: MAGNESIUM SULFATE 2 GM/50 ML 50 ML IVPB ×2 (07:29→08:15)
[2018-02-15] MEDS: POTASSIUM CHLORIDE 100 ML IVPB ×3 (07:30→10:30)
[2018-02-15] MEDS ORDERED: MAGNESIUM SULFATE 4 GM/100 ML 100 ML IVPB (07:30)
[2018-02-15 07:40] LABS: ABNORMAL IP MESSAGE 1; BASOPHILS % 0.1 % (0.0-2.0); HEMATOCRIT 19.6 % (37.0-47.0); LYMPHOCYTES # 0.3 10^3/ul (0.8-2.9); LYMPHOCYTES % 4.2 % (15.0-51.0); MEAN CORPUSCULAR HEMOGLOBIN 28.7 pg (29.0-33.0); MEAN CORPUSCULAR HGB CONC 31.6 g/dl (32.0-37.0); MEAN CORPUSCULAR VOLUME 90.7 fl (82.0-101.0); MEAN PLATELET VOLUME 13.4 fl (7.4-10.4); MONOCYTE # 0.2 10^3/ul (0.3-0.9); MONOCYTES % 3.5 % (0.0-11.0); NEUTROPHIL # 6.2 10^3/ul (1.6-7.5); NUCLEATED RED BLOOD CELLS% 0.3 /100WBC (0.0-0.0); PLATELET COUNT 39 10^3/UL (140-415); RED BLOOD COUNT 2.16 10^6/ul (4.20-5.40); RED CELL DISTRIBUTION WIDTH 14.6 % (11.5-14.5)
[2018-02-15 07:40] LABS: WHITE BLOOD COUNT 6.8 10^3/ul (4.8-10.8)
[2018-02-15] MEDS: clonAZEPAM 0.5 MG TAB NGT ×2 (07:40→20:22)
[2018-02-15] MEDS: QUETIAPINE 100 MG TAB NGT ×2 (07:40→20:22)
[2018-02-15 07:46] LABS: NEUTROPHILS % 90.6 % (39.0-77.0); POSITIVE DIFF @See below
[2018-02-15 07:50] LABS: HEMOGLOBIN 6.2 g/dl (12.0-16.0)
[2018-02-15 08:16] LABS: AADO2 Arterial 288.6 mmHg (7.0-24.0); Allen Test ACCEPTAB; Arterial Base Excess 0.9 mmol/L (-3.0-3); Arterial Blood Gas Oxygen Sat 96.9 mmHG (95.0-100.0); Arterial COHb 0.7 % (0.0-3.0); Arterial Fraction of Oxyhgb 95.9 % (93.0-99.0); Arterial HCO3 25.6 mmol/L (22.0-26.0); Arterial MetHb 0.3 % (0.0-1.5); Arterial Total Hemglobin 9.1 g/dl (12.0-18.0); Arterial pCO2 41.3 mmhg (35-45); MODE VENT - AC; Site Right Radial
[2018-02-15] MEDS: MUPIROCIN 2% 22 GM OINT TOP ×2 (09:00→20:27)
[2018-02-15] MEDS: predniSONE 5 MG TAB NGT (09:09)
[2018-02-15] MEDS: traMADol 50 MG TAB NGT (09:09)
[2018-02-15] MEDS: LIOTHYRONINE 5 MCG TAB NGT (09:09)
[2018-02-15 09:37] LABS: ANISOCYTOSIS 1+ (0-0); BAND NEUTROPHILS #M 2.8 10^3/ul (0.0-0.6); BAND NEUTROPHILS % (M) 42 % (0-4); GIANT THROMBO% (M) 1 % (0-0); LYMPHOCYTES #M 0.4 10^3/ul (0.8-2.9); LYMPHOCYTES % (M) 6 % (15-51); METAMYELOCYTES #M 0.1 10^3/ul (0.0-0.0); METAMYELOCYTES %M 2 % (0-0); MICROCYTOSIS 1+ (0-0); MONOCYTE #M 0.2 10^3/ul (0.3-0.9); MONOCYTES % (M) 4 % (0-11); MYELOCYTES #M 0.2 10^3/ul (0.0-0.0); MYELOCYTES % (M) 3 % (0-0); PLATELET ESTIMATE SIG DECREASED; POIKILOCYTOSIS 1+ (0-0); POLYCHROMASIA 3+ (0-0); REACTIVE LYMPHOCYTES% (M) 1 % (0-0); SEGMENTED NEUTROPHILS (M) % 42 % (39-77); SMUDGE%M 1 % (0-0)
[2018-02-15] MEDS: [UNRECOGNIZED DRUG - REMARK] IV (10:00)
[2018-02-15 10:41] LABS: ANISOCYTOSIS 1+ (0-0); BAND NEUTROPHILS #M 2.6 10^3/ul (0.0-0.6); BAND NEUTROPHILS % (M) 46 % (0-4); ERYTHROBLAST% (NRBC) (M) 1 % (0-0); GIANT THROMBO% (M) 1 % (0-0); LYMPHOCYTES #M 0.2 10^3/ul (0.8-2.9); LYMPHOCYTES % (M) 5 % (15-51); METAMYELOCYTES #M 0.1 10^3/ul (0.0-0.0); METAMYELOCYTES %M 2 % (0-0); MICROCYTOSIS 1+ (0-0); MONOCYTE #M 0.1 10^3/ul (0.3-0.9); MONOCYTES % (M) 2 % (0-11); MYELOCYTES % (M) 1 % (0-0); PLATELET ESTIMATE SIG DECREASED; POIKILOCYTOSIS 1+ (0-0); POLYCHROMASIA 2+ (0-0); REACTIVE LYMPHOCYTES% (M) 1 % (0-0); SEG NEUT #M 2.8 10^3/ul (1.6-7.5); SEGMENTED NEUTROPHILS (M) % 45 % (39-77); SMUDGE%M 4 % (0-0)
[2018-02-15] MEDS: GENTAMICIN 280 MG in SOD CHLORIDE 0.9% 100 ML IVPB (11:01)
[2018-02-15 11:09] LABS: IRON 20 ug/dl (35-150)
[2018-02-15] MEDS: ENOXAPARIN 40 MG/0.4 ML SYG SC (11:14)
[2018-02-15 11:18] LABS: % IRON SATURATION 25 % SAT (22-52); TOTAL IRON BINDING CAPACITY 81 ug/dl (241-421)
[2018-02-15 11:18] LABS: B-TYPE NATRIURETIC PEPTIDE 11600 PG/ML (0-125); IMMEDIATE SPIN CROSSMATCH 1 2
[2018-02-15] MEDS: MIDAZOLAM (DRIP) 50 mg/50 mL 50 ML IV (11:45)
[2018-02-15] MEDS: TPN 1,000 ML IV (12:40)
[2018-02-15] MEDS: FUROSEMIDE 20 MG INJ IV (13:58)
[2018-02-15] MEDS: POTASSIUM PHOSPHATE 30 MM in SOD CHLORIDE 0.9% 250 ML IVPB (14:11)
[2018-02-15] MEDS: FAT EMULSION 20% 250 ML IV (16:01)
[2018-02-15] MEDS: METOLAZONE 5 MG TAB PO (18:49)
[2018-02-15] MEDS: FUROSEMIDE 40 MG INJ IV (18:50)
[2018-02-15 20:43] LABS: WHITE BLOOD COUNT 4.1 10^3/ul (4.8-10.8)
[2018-02-15 20:43] LABS: ABNORMAL IP MESSAGE 1; HEMATOCRIT 26.3 % (37.0-47.0); HEMOGLOBIN 8.6 g/dl (12.0-16.0); MEAN CORPUSCULAR HGB CONC 32.7 g/dl (32.0-37.0); MEAN CORPUSCULAR VOLUME 88.6 fl (82.0-101.0); MEAN PLATELET VOLUME 13.9 fl (7.4-10.4); NUCLEATED RED BLOOD CELLS% 0.5 /100WBC (0.0-0.0); RED BLOOD COUNT 2.97 10^6/ul (4.20-5.40)
[2018-02-15 20:58] LABS: ADD MAN DIFF? YES; PLATELET COUNT 20 10^3/UL (140-415); POSITIVE DIFF @See below
[2018-02-15 21:01] LABS: ANION GAP 13 (8-16); BLOOD UREA NITROGEN 18 mg/dl (7-20); CALCIUM 7.1 mg/dl (8.4-10.2); CARBON DIOXIDE 26 mmol/L (21-31); CHLORIDE 102 mmol/L (97-110); GLUCOSE 102 mg/dl (70-220); MAGNESIUM 2.1 mg/dl (1.7-2.5); PHOSPHORUS 3.4 mg/dl (2.5-4.9); POTASSIUM 4.3 mmol/L (3.5-5.1); SODIUM 137 mmol/L (135-144)
[2018-02-15 21:22] LABS: WHITE BLOOD COUNT 3.4 10^3/ul (4.8-10.8)
[2018-02-15 21:22] LABS: ABNORMAL IP MESSAGE 1; HEMATOCRIT 26.2 % (37.0-47.0); HEMOGLOBIN 8.8 g/dl (12.0-16.0); MEAN CORPUSCULAR HEMOGLOBIN 29.7 pg (29.0-33.0); MEAN CORPUSCULAR HGB CONC 33.6 g/dl (32.0-37.0); MEAN CORPUSCULAR VOLUME 88.5 fl (82.0-101.0); NUCLEATED RED BLOOD CELLS% 0.9 /100WBC (0.0-0.0); RED BLOOD COUNT 2.96 10^6/ul (4.20-5.40)
[2018-02-15 21:26] LABS: BAND NEUTROPHILS #M 0.8 10^3/ul (0.0-0.6); BAND NEUTROPHILS % (M) 21 % (0-4); BURR CELLS 1+ (0-0); LYMPHOCYTES #M 0.2 10^3/ul (0.8-2.9); LYMPHOCYTES % (M) 6 % (15-51); METAMYELOCYTES #M 0.1 10^3/ul (0.0-0.0); METAMYELOCYTES %M 4 % (0-0); MONOCYTE #M 1.5 10^3/ul (0.3-0.9); MONOCYTES % (M) 37 % (0-11); MYELOCYTES % (M) 1 % (0-0); PLATELET ESTIMATE SIG DECREASED; POIKILOCYTOSIS 1+ (0-0); SEG NEUT #M 1.3 10^3/ul (1.6-7.5); SEGMENTED NEUTROPHILS (M) % 31 % (39-77); SMUDGE%M 4 % (0-0)
[2018-02-15 21:35] LABS: PLATELET COUNT 17 10^3/UL (140-415)
[2018-02-15 21:36] LABS: ADD MAN DIFF? YES; POSITIVE DIFF @See below
[2018-02-15 22:22] LABS: BAND NEUTROPHILS % (M) 32 % (0-4); LYMPHOCYTES # 0.1 10^3/ul (0.8-2.9); LYMPHOCYTES #M 0.1 10^3/ul (0.8-2.9); LYMPHOCYTES % (M) 3 % (15-51); METAMYELOCYTES #M 0.1 10^3/ul (0.0-0.0); METAMYELOCYTES %M 3 % (0-0); MONOCYTE # 0.4 10^3/ul (0.3-0.9); MONOCYTE #M 0.4 10^3/ul (0.3-0.9); MONOCYTES % (M) 12 % (0-11); MYELOCYTES % (M) 1 % (0-0); SEG NEUT #M 1.7 10^3/ul (1.7-7.5); SEGMENTED NEUTROPHILS (M) % 49 % (39-77)
[2018-02-16] MEDS ORDERED: PHENYLephrine 20MG IN 250 ML 250 ML (00:26)
[2018-02-16] MEDS: INSULIN ASPART [NOVOLOG] 3 ML PEN SC ×2 (01:00→04:45)
[2018-02-16] MEDS: PHENYLephrine 20MG IN 250 ML 250 ML IV ×2 (01:09→02:48)
[2018-02-16] MEDS: ACCU-CHEK XX ×2 (01:15→04:45)
[2018-02-16] MEDS: LEVALBUTEROL (HFA) 15 GM INHALER INH ×2 (01:22→04:05)
[2018-02-16] MEDS: IPRATROPIUM (HFA) 12.9 GM INHALER INH ×2 (01:23→04:06)
[2018-02-16 02:03] LABS: AADO2 Arterial 611.6 mmHg (7.0-24.0); Allen Test ACCEPTAB; Arterial Base Excess -6.7 mmol/L (-3.0-3); Arterial Blood Gas Oxygen Sat 73.8 mmHG (95.0-100.0); Arterial COHb 0.2 % (0.0-3.0); Arterial Fraction of Oxyhgb 73.4 % (93.0-99.0); Arterial HCO3 21.5 mmol/L (22.0-26.0); Arterial MetHb 0.3 % (0.0-1.5); Arterial Total Hemglobin 9.2 g/dl (12.0-18.0); Arterial pCO2 57.4 mmhg (35-45); Blood Gas Mean Airway Pressure 20; MODE VENT - AC; Site Right Radial
[2018-02-16 02:35] LABS: WHITE BLOOD COUNT 3.7 10^3/ul (4.8-10.8)
[2018-02-16 02:35] LABS: ABNORMAL IP MESSAGE 1; HEMATOCRIT 27.2 % (37.0-47.0); HEMOGLOBIN 8.7 g/dl (12.0-16.0); MEAN CORPUSCULAR HEMOGLOBIN 29.3 pg (29.0-33.0); MEAN CORPUSCULAR VOLUME 91.6 fl (82.0-101.0); NUCLEATED RED BLOOD CELLS% 0.8 /100WBC (0.0-0.0); RED BLOOD COUNT 2.97 10^6/ul (4.20-5.40); RED CELL DISTRIBUTION WIDTH 15.7 % (11.5-14.5)
[2018-02-16 02:37] LABS: POSITIVE DIFF @See below
[2018-02-16 02:44] LABS: ADD MAN DIFF? YES; PLATELET COUNT 13 10^3/UL (140-415)
[2018-02-16] MEDS: VANCOMYCIN 500MG/NS (PMX) 100 ML IVPB (03:20)
[2018-02-16] MEDS: VASOPRESSIN 60 UNIT in DEXTROSE 5% 57 ML IV (03:25)
[2018-02-16 03:26] LABS: ANION GAP 18 (8-16); BLOOD UREA NITROGEN 18 mg/dl (7-20); CALCIUM 6.5 mg/dl (8.4-10.2); CARBON DIOXIDE 19 mmol/L (21-31); CHLORIDE 100 mmol/L (97-110); CREATININE 0.97 mg/dl (0.44-1.00); MAGNESIUM 2.4 mg/dl (1.7-2.5); PHOSPHORUS 4.5 mg/dl (2.5-4.9); POTASSIUM 5.6 mmol/L (3.5-5.1); SODIUM 131 mmol/L (135-144)
[2018-02-16 03:37] LABS: LACTIC ACID 4.6 mmol/L (0.5-2.0)
[2018-02-16 03:47] LABS: GLUCOSE 450 mg/dl (70-220)
[2018-02-16] MEDS: PHENYLephrine 40 MG in DEXTROSE 5% 496 ML IV ×2 (03:53→06:13)
[2018-02-16 03:56] LABS: BAND NEUTROPHILS #M 0.4 10^3/ul (0.0-0.6); BAND NEUTROPHILS % (M) 13 % (0-4); EOSINOPHILS % (M) 1 % (0.0-7.0); ERYTHROBLAST% (NRBC) (M) 2 % (0-0); LYMPHOCYTES # 0.5 10^3/ul (0.8-2.9); LYMPHOCYTES #M 0.4 10^3/ul (0.8-2.9); LYMPHOCYTES % (M) 13 % (15-51); MONOCYTE # 0.2 10^3/ul (0.3-0.9); MONOCYTE #M 0.1 10^3/ul (0.3-0.9); MONOCYTES % (M) 5 % (0-11); SEG NEUT #M 2.5 10^3/ul (1.7-7.5); SEGMENTED NEUTROPHILS (M) % 67 % (39-77)
[2018-02-16 03:59] LABS: PLATELET ESTIMATE SIG DECREASED
[2018-02-16] MEDS: LANSOPRAZOLE 30 MG CAP NGT (05:07)
[2018-02-16] MEDS: metroNIDAZOLE 500 MG/NS (PMX) 100 ML IVPB (05:07)
[2018-02-16] MEDS: ERYTHROMYCIN ETHYL SUCC (80 MG/ML PO SYG) NGT (05:07)
[2018-02-16] MEDS: LEVOTHYROXINE 100 MCG VIAL IV (05:07)
[2018-02-16 05:43] LABS: B-TYPE NATRIURETIC PEPTIDE 37600 PG/ML (0-125)
[2018-02-16] MEDS: TPN 1,000 ML IV (06:10)
[2018-02-16] MEDS ORDERED: NA BICARBONATE 8.4% 50 ML SYG (07:00)
[2018-02-16] MEDS ORDERED: EPINEPHrine 0.1 MG/ML SYG (07:00)
== END 2018-02-16 08:44 | disposition expired | DRG 207 ==
LOC: ICU 16:46
PROC: 5A1955Z Respiratory Ventilation, Greater than 96 Consecutive Hours (ICD-10-PCS; principal; 2018-02-09)
PROC: 02HV33Z Insertion of Infusion Device into Superior Vena Cava, Percutaneous Approach (ICD-10-PCS; 2018-02-13)
PROC: 0B21XEZ Change Endotracheal Airway in Trachea, External Approach (ICD-10-PCS; 2018-02-14)
PROC: 0BJ08ZZ Inspection of Tracheobronchial Tree, Via Natural or Artificial Opening Endoscopic (ICD-10-PCS; 2018-02-14)
PROC: 5A12012 Performance of Cardiac Output, Single, Manual (ICD-10-PCS; 2018-02-14)
PROC: 30233N1 Transfusion of Nonautologous Red Blood Cells into Peripheral Vein, Percutaneous Approach (ICD-10-PCS; 2018-02-15)
DX: J95.09 Other tracheostomy complication (principal); E43 Unspecified severe protein-calorie malnutrition; J96.02 Acute respiratory failure with hypercapnia; K65.1 Peritoneal abscess; J96.21 Acute and chronic respiratory failure with hypoxia; J18.9 Pneumonia, unspecified organism; A41.9 Sepsis, unspecified organism; R65.21 Severe sepsis with septic shock; D61.818 Other pancytopenia; I50.30 Unspecified diastolic (congestive) heart failure; Z99.11 Dependence on respirator [ventilator] status; G72.81 Critical illness myopathy; S11.80XA Unspecified open wound of other specified part of neck, initial encounter; T85.898A Other specified complication of other internal prosthetic devices, implants and grafts, initial encounter; D50.9 Iron deficiency anemia, unspecified; E87.70 Fluid overload, unspecified; E03.9 Hypothyroidism, unspecified; E78.5 Hyperlipidemia, unspecified; E87.6 Hypokalemia; E83.39 Other disorders of phosphorus metabolism; F41.1 Generalized anxiety disorder; I11.0 Hypertensive heart disease with heart failure; I49.9 Cardiac arrhythmia, unspecified; I48.91 Unspecified atrial fibrillation; I46.9 Cardiac arrest, cause unspecified; J44.9 Chronic obstructive pulmonary disease, unspecified; K94.29 Other complications of gastrostomy; L98.499 Non-pressure chronic ulcer of skin of other sites with unspecified severity; M81.0 Age-related osteoporosis without current pathological fracture; R13.10 Dysphagia, unspecified; B96.1 Klebsiella pneumoniae [K. pneumoniae] as the cause of diseases classified elsewhere; B96.6 Bacteroides fragilis [B. fragilis] as the cause of diseases classified elsewhere; Z16.10 Resistance to unspecified beta lactam antibiotics; Z87.891 Personal history of nicotine dependence
CPT/HCPCS: 31500; 36430; 36569; 36600; 71045; 74240; 76937; 80048; 80053; 80076; 80170; 80202; 82270; 82607; 82728; 82746; 82803; 82962; 83540; 83605; 83735; 83880; 84100; 84132; 84134; 84439; 84443; 84478; 85025; 85045; 85610; 86850; 86900; 86901; 86920; 87081; 92950; 94003; 94640; 94770